=== PATIENT | female | born 1950 | race Caucasian/White ===

== ENCOUNTER 2016-03-10 14:46 | Outpatient (RCR) | payer OTHER | END 2016-05-20 | LOC: WSOH | DX: M54.2 Cervicalgia (principal); S23.3XXD Sprain of ligaments of thoracic spine, subsequent encounter; S23.421D Sprain of chondrosternal joint, subsequent encounter; S83.411D Sprain of medial collateral ligament of right knee, subsequent encounter; S83.412D Sprain of medial collateral ligament of left knee, subsequent encounter ==

== ENCOUNTER → 2023-11-19 | Outpatient (CLI) | payer MEDICARE ==
[~2023-11-19] MED LIST: Iohexol 300 - 10 ML VIAL IV ONE; Triamcinolone 40 MG/ML 1 ML VIAL IJ ONE
== END ==
LOC: COL.RAD 07:27
DX: M25.551 Pain in right hip (principal)
CPT/HCPCS: J0665; J3301; Q9967